=== PATIENT | male | born 2000 | race Hispanic/Latino ===

== ENCOUNTER 2018-05-03 01:46 | Emergency (ER) | payer BC ==
[~2018-05-03] VITALS: Ht 170.2 cm; Wt 63.5 kg
--- NOTE | 2018-05-03 02:43 | Diagnostic Imaging Report ---
FOOT LEFT COMPLETE Comparison: None Clinical history: \S\PUNCTURE WOUND Findings: No radiopaque foreign body or soft tissue gas. No acute fracture or bony erosion. Impression: No acute bony abnormality or radiopaque foreign body. Signed by: Dr Mira Mobley MD on 05/03/2018 2:39 AM
[2018-05-03 03:42] VITALS: BP 138/79
== END 2018-05-03 03:42 | disposition home or self-care (01) ==
LOC: ER 01:46
DX: S91.332A Puncture wound without foreign body, left foot, initial encounter (principal); W45.0XXA Nail entering through skin, initial encounter; Y99.0 Civilian activity done for income or pay
CPT/HCPCS: 99283

== ENCOUNTER 2018-05-20 19:46 | Observation (INO) | payer BC ==
[~2018-05-20] VITALS: Ht 180.3 cm; Wt 71.1 kg
[2018-05-20] MEDS ORDERED: SODIUM CHLORIDE 0.9% 1000ML 1,000 ML IV SCH ×2 (20:00→21:00)
[2018-05-20 20:30] LABS: BASOPHILS % 0.3 % (0.0-1.0); EOSINOPHILS % 0.1 % (0.0-6.0); HEMATOCRIT 44.7 % (38.2-49.6); HEMOGLOBIN 15.7 g/dL (14.0-18.0); LYMPHOCYTES # (AUTO) 1.5 (1.0-3.2); LYMPHOCYTES % 10.6 % (18.0-39.1); MEAN CORPUSCULAR HEMOGLOBIN 29.2 pg (28-32); MEAN CORPUSCULAR HGB CONC 35.1 g/dL (31-35); MEAN CORPUSCULAR VOLUME 83.2 fL (81-99); MONOCYTES # (AUTO) 1.1 (0.2-0.8); MONOCYTES % 8.1 % (4.4-11.3); NEUTROPHILS % 80.2 % (38.7-80.0); PLATELET COUNT 302 x10e3/uL (140-360); RED BLOOD COUNT 5.37 x10e6/uL (4.3-5.7); RED CELL DISTRIBUTION WIDTH 12.5 % (11.7-14.4)
[2018-05-20 20:45] LABS: ANION GAP 18.6 mmol/L (8-16); CALCIUM 10.9 mg/dL (8.4-10.2); CREATININE, SERUM 1.62 mg/dL (0.72-1.25); POTASSIUM 4.6 mmol/L (3.5-5.1)
[2018-05-20 20:53] LABS: CREATINE KINASE MB 1.7 ng/mL (0-5.0)
[2018-05-20] MEDS ORDERED: ONDANSETRON HCL INJ 2 MG/ML VIAL IV PRN (21:45)
[2018-05-20] MEDS ORDERED: ACETAMINOPHEN 325 MG TAB PO PRN (21:45)
[2018-05-20 22:30] VITALS: BP 134/61
[2018-05-20 22:57] VITALS: BP 134/61
[2018-05-21] MEDS: SODIUM CHLORIDE 0.9% 1000ML 1,000 ML IV SCH ×2 (00:12→06:12)
[2018-05-21 05:04] LABS: BASOPHILS % 0.4 % (0.0-1.0); EOSINOPHILS # (AUTO) 0.2 (0.0-0.4); EOSINOPHILS % 2.3 % (0.0-6.0); HEMATOCRIT 37.9 % (38.2-49.6); LYMPHOCYTES # (AUTO) 3.3 (1.0-3.2); LYMPHOCYTES % 39.6 % (18.0-39.1); MEAN CORPUSCULAR HGB CONC 34.3 g/dL (31-35); MEAN CORPUSCULAR VOLUME 84.4 fL (81-99); NEUTROPHILS # (AUTO) 3.8 (2.1-6.9); NEUTROPHILS % 45.5 % (38.7-80.0); PLATELET COUNT 246 x10e3/uL (140-360); RED BLOOD COUNT 4.49 x10e6/uL (4.3-5.7); RED CELL DISTRIBUTION WIDTH 12.7 % (11.7-14.4)
[2018-05-21 05:28] LABS: ANION GAP 12.7 mmol/L (8-16); BLOOD UREA NITROGEN 17 mg/dL (7-26); BUN/CREATININE RATIO 20 (6-25); CALCIUM 8.9 mg/dL (8.4-10.2); CARBON DIOXIDE 25 mmol/L (22-29); CHLORIDE 107 mmol/L (98-107); CREATINE KINASE 418 IU/L (30-200); CREATININE, SERUM 0.86 mg/dL (0.72-1.25); EST GLOMERULAR FILTRATION RATE > 60 ML/MIN (60-); GLUCOSE 97 mg/dL (74-118); POTASSIUM 3.7 mmol/L (3.5-5.1); SODIUM 141 mmol/L (136-145)
[2018-05-21 07:00] VITALS: BP 122/68
[2018-05-21 07:26] VITALS: BP 122/68
--- NOTE | 2018-05-21 10:46 | History and Physical ---
CHIEF COMPLAINT: Muscle cramps and body pain. HPI: Mr. Berry is a 17-year-old male. He was working outside. 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 He presented to the emergency room and he was found to be in renal failure and mild rhabdomyolysis with heat exhaustion. He was started on IV hydration. He is doing very well now; however, his CPK has gone up from 215 to 418 and needs more hydration. He denies any chest pain, nausea, vomiting. He has no leg cramps. REVIEW OF SYSTEMS: Negative except as in HPI. PAST MEDICAL HISTORY: None. PAST SURGICAL HISTORY: None. FAMILY AND SOCIAL HISTORY: He lives with . 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 Does not smoke, does not drink. PHYSICAL EXAMINATION: VITAL SIGNS: Temperature 97.5, pulse of 55, blood pressure 122/68, respiratory rate of 18. O2 sat 100%. HEENT: Head atraumatic, normocephalic. NECK: Supple. CHEST: Clear to auscultation bilaterally. No wheezing or crackles. HEART: S1 and S2 audible. ABDOMEN: Soft, nontender, nondistended. EXTREMITIES: No clubbing, cyanosis, or edema. NEUROLOGICAL: Awake and alert. LABS: CPK was 215 on admission, now it is 418. Creatinine was 1.62, is down to 0.86. White count is 8.41. ASSESSMENT/PLAN: Mr. Berry is a 17-year-old male with mild rhabdomyolysis due to heat exhaustion and mild acute kidney injury due to heat exhaustion that has resolved. However, the CPK is still high. I have recommended to continue the hydration for another 5 or 6 hours and recheck the labs. If the CPKs are down trending, he can be discharged. However, patient is telling me that he wants to sign out against medical advice and wants to go home right now. Job#: [id number]
== END 2018-05-21 10:17 | disposition left against medical advice (07) ==
LOC: ER 19:46 → ERHOLD 21:44 → IMCU 22:30
PROVIDERS: ADMIT Internal Medicine; ATTEND Internal Medicine
DX: T67.3XXA Heat exhaustion, anhydrotic, initial encounter (principal); T67.2XXA Heat cramp, initial encounter; X30.XXXA Exposure to excessive natural heat, initial encounter; Y93.H2 Activity, gardening and landscaping; N28.9 Disorder of kidney and ureter, unspecified; N17.9 Acute kidney failure, unspecified; M62.82 Rhabdomyolysis
CPT/HCPCS: 36415 ×2; 80048 ×2; 82550 ×2; 82553 ×2; 84484 ×2; 85025 ×2; 99283; G0378 ×2; J7030 ×2